=== PATIENT | male | born 1980 | race Two or more races ===

== ENCOUNTER 2017-06-15 16:26 | Emergency (ER) | payer OTHER ==
[2017-06-15 16:50] VITALS: BP 136/81; PULSE 73; TEMP 98.2; BMI 31.2
--- NOTE | 2017-06-15 17:06 | PDOC ---
History of Present Illness - General Chief Complaint: Laceration Stated Complaint: CUT IN ARM Time Seen by Provider: 06/15/17 17:05 History Source: Patient Exam Limitations: No Limitations - History of Present Illness Initial Comments: CHIEF COMPLAINT: 37 y/o afebrile male with no significant PMH here for laceration to left arm. HISTORY OF PRESENT ILLNESS: The patient states he was at work using a saw to cut metal when one of the pieces of the saw broke and hit him in the left arm, causing a laceration. He states he is not UTD on tetanus. He denies numbness/ tingling in affected extremity. The patient is right handed. Vital signs on arrival are within normal limits. REVIEW OF SYSTEMS: GENERAL/CONSTITUTIONAL: No fever/chills. No weakness. No weight change. MUSCULOSKELETAL: No joint or muscle swelling or pain. No neck or back pain. SKIN: +laceration to left arm NEUROLOGIC: No headache, vertigo, loss of consciousness, or loss of sensation. PHYSICAL EXAM: VITAL_SIGNS: within normal limits GENERAL_APPEARANCE: alert, cooperative, no obvious discomfort. MENTAL_STATUS: speech clear, oriented X 3, responds appropriately to questions. NEURO: motor intact and sensory intact in injured extremity. EXTREMITIES: 3cm irregular laceration to left distal, medial arm with well approximated margins and minimal active bleeding. Full flexion and extension of fingers, wrist and elbow of left hand. SKIN: warm, dry, good color. Past History - Past Medical History Allergies/Adverse Reactions: Allergies Allergy/AdvReac Type Severity Reaction Status Date / Time No Known Allergies Allergy Verified 06/15/17 16:45 Home Medications: Ambulatory Orders NK [No Known Home Medication] 06/15/17 Other medical history: DENIES. - Psycho/Social/Smoking Cessation Hx Anxiety: No Suicidal Ideation: No Smoking Status: No Smoking History: Never smoked Number of Cigarettes Smoked Daily: 0 *Physical Exam - Vital Signs Last Vital Signs Temp Pulse Resp BP Pulse Ox 98.2 F 73 19 136/81 99 06/15/17 16:45 06/15/17 16:45 06/15/17 16:45 06/15/17 16:45 06/15/17 16:45 Medical Decision Making - Medical Decision Making A/P: 37 y/o afebrile male with laceration to left arm. Plan is as follows: 1. Tetanus 2. Copious irrigation 3. Lac repair The laceration was repaired by Resident Shea AUGUSTIN, supervised by MD Masterson. The patient tolerated suturing well. He was informed tetanus status is now UTD for 10 years. He was instructed to return to the ER in 7-10 days for suture removal and to keep the area clean and dry. Pt was instructed to return to the ER with any worsening or concerning symptoms. The patient verbalizes understanding of all instructions, has no further questions and is awaiting discharge. *DC/Admit/Observation/Transfer Diagnosis at time of Disposition: Laceration of arm Qualifiers: Encounter type: initial encounter Laterality: left Qualified Code(s): S41.112A - Laceration without foreign body of left upper arm, initial encounter - Discharge Dispostion Condition at time of disposition: Improved - Referrals Referrals: Sonal Ospina A [Primary Care Provider] - - Patient Instructions Printed Discharge Instructions: DI for Laceration Repair Additional Instructions: Discharge Instructions: -Keep wound clean, dry and covered -Return to the ER in 7-10 days for suture removal -Return to the ER sooner with any concerning symptoms Instrucciones de mike: - Mantenga la herida limpia, seca y cubierta -Regresar a la ER en 7-10 fernandez para la eliminacin de sutura -Vuelva a la urgencia antes con cualquier sntoma relacionado
[2017-06-15] MEDS ORDERED: DIPHTH,PERTUSS(ACELL),TET 0.5 ML DISP.SYRIN IM ONE (17:28)
[2017-06-15] MEDS ORDERED: LIDOCAINE 1%/EPI 1:100000 (20 ML MULTI DOSE VIAL) IJ ONE (17:38)
[2017-06-15] MEDS ORDERED: LIDOCAINE 1%/EPI 1:100000 (50 ML MULTI DOSE VIAL) ONE (17:39)
== END 2017-06-15 19:01 | disposition home or self-care (01) ==
LOC: JERFT 16:26
PROC: 0HQCXZZ Repair Left Upper Arm Skin, External Approach (ICD-10-PCS; principal; 2017-06-15)
PROC: 3E0234Z Introduction of Serum, Toxoid and Vaccine into Muscle, Percutaneous Approach (ICD-10-PCS; 2017-06-15)
DX: S41.112A Laceration without foreign body of left upper arm, initial encounter (principal); W31.89XA Contact with other specified machinery, initial encounter; Y93.89 Activity, other specified; Y92.9 Unspecified place or not applicable
CPT/HCPCS: 90715; 99281-25

== ENCOUNTER 2018-01-08 21:13 | Emergency (ER) | payer OTHER ==
--- NOTE | 2018-01-08 21:22 | PDOC ---
Rapid Medical Evaluation Time Seen by Provider: 01/08/18 21:15 Medical Evaluation: Allergies Allergy/AdvReac Type Severity Reaction Status Date / Time No Known Allergies Allergy Verified 06/15/17 16:45 01/08/18 21:15 The patient presents with a chief complaint of: [Pain to the bilateral legs for three days. Denies back pain. Denies trauma or injury. No difficulty with urination or defecation. Pain is 6/10. Took Motrin with good result. Pain returns worse. Denies injury or strenuous exercise. ] I have performed a brief in-person evaluation of this patient. Pertinent physical exam findings: vss, [No spinal point tenderness. ] I have ordered the following: Urinalysis[] The patient will proceed to the ED for further evaluation. Discharge Disposition - Diagnosis Bilateral leg pain - Referrals - Patient Instructions - Post Discharge Activity
[2018-01-08 21:27] VITALS: BP 139/77; PULSE 88; TEMP 97.9; BMI 30.7
[2018-01-08 22:09] LABS: URINE APPEARANCE CLEAR; URINE BILIRUBIN NEGATIVE (NEGATIVE); URINE BLOOD NEGATIVE (NEGATIVE); URINE COLOR LTYELLOW; URINE GLUCOSE (UA) NEGATIVE (NEGATIVE); URINE KETONE NEGATIVE (NEGATIVE); URINE LEUK ESTERASE NEGATIVE (NEGATIVE); URINE NITRITE NEGATIVE (NEGATIVE); URINE PROTEIN NEGATIVE (NEGATIVE); URINE UROBILINOGEN NEGATIVE mg/dL (0.2-1.0)
--- NOTE | 2018-01-08 22:37 | PDOC ---
History of Present Illness - General Chief Complaint: Pain Stated Complaint: LEG PAIN Time Seen by Provider: 01/08/18 21:15 Past History - Past Medical History Allergies/Adverse Reactions: Allergies Allergy/AdvReac Type Severity Reaction Status Date / Time No Known Allergies Allergy Verified 01/08/18 21:21 Home Medications: Ambulatory Orders Cyclobenzaprine HCl [Flexeril -] 10 mg PO HS #10 tablet 01/08/18 Ibuprofen 800 mg PO TID #30 tablet 01/08/18 COPD: No Other medical history: Pt denies - Suicide/Smoking/Psychosocial Hx Smoking Status: No Smoking History: Never smoked Have you smoked in the past 12 months: No Number of Cigarettes Smoked Daily: 0 Information on smoking cessation initiated: No Hx Alcohol Use: No Drug/Substance Use Hx: No Substance Use Type: None *Physical Exam - Vital Signs Last Vital Signs Temp Pulse Resp BP Pulse Ox 97.9 F 88 18 139/77 98 01/08/18 21:23 01/08/18 21:23 01/08/18 21:23 01/08/18 21:23 01/08/18 21:23 ED Treatment Course - ADDITIONAL ORDERS Additional order review: Laboratory Results 01/08/18 21:46 Urine Color Ltyellow Urine Appearance Clear Urine pH 6.0 Ur Specific [place] 1.024 Urine Protein Negative Urine Glucose (UA) Negative Urine Ketones Negative Urine Blood Negative Urine Nitrite Negative Urine Bilirubin Negative Urine Urobilinogen Negative Ur Leukocyte Esterase Negative *DC/Admit/Observation/Transfer Diagnosis at time of Disposition: Bilateral leg pain Muscle strain, lower leg Qualifiers: Encounter type: initial encounter Laterality: left Qualified Code(s): S86.912A - Strain of unspecified muscle(s) and tendon(s) at lower leg level, left leg, initial encounter Muscle strain of right lower extremity Qualifiers: Encounter type: initial encounter Qualified Code(s): S86.911A - Strain of unspecified muscle(s) and tendon(s) at lower leg level, right leg, initial encounter - Discharge Dispostion Disposition: HOME Condition at time of disposition: Stable Admit: No - Referrals Referrals: Sonal Ospina [Primary Care Provider] - - Patient Instructions Printed Discharge Instructions: DI for Muscle Strain Additional Instructions: You have muscle strains in your legs. This may take up to a week to go away. Please take Motrin 800 mg every 8 hours as needed for pain. You may take Flexeril at night this is a muscle relaxer. Do not drive after taking this medicine as it may make you sleepy. Please use a heating pack to the legs to help relieve the pain. Please follow-up with your primary care doctor this week. Return to the emergency department if you have worsening pain, numbness and tingling to the legs, weakness, or have any changes in your symptoms. Tienes tensiones musculares en tus piernas. [place] puede demorar hasta harpreet semana en desaparecer. [place] Motrin 800 mg cada 8 horas segn sea necesario para el dolor. Puede kamar Flexeril por la noche, kierra es un relajante muscular. No conduzca despus de kamar kierra medicamento, ya que puede causarle sueo. Utilice un paquete de calefaccin para las piernas para ayudar a aliviar el dolor. Por favor elisa un seguimiento con anderson mdico de atencin primaria esta semana. Regrese al servicio de urgencias si tiene un empeoramiento del dolor, entumecimiento y hormigueo en las piernas, debilidad o cambios en los sntomas. Print Language: URUGUAYAN - Post Discharge Activity Forms/Work/School Notes: Back to Work
[2018-01-08] MEDS ORDERED: KETOROLAC TROMETHAMINE 60 MG/2 ML VIAL IM ONE (22:41)
[2018-01-08] MEDS ORDERED: KETOROLAC TROMETHAMINE 60 MG/2 ML VIAL ONE (22:41)
== END 2018-01-08 23:01 | disposition home or self-care (01) ==
LOC: JERFT 21:13
PROC: 3E0233Z Introduction of Anti-inflammatory into Muscle, Percutaneous Approach (ICD-10-PCS; principal; 2018-01-08)
DX: S86.912A Strain of unspecified muscle(s) and tendon(s) at lower leg level, left leg, initial encounter (principal); S86.911A Strain of unspecified muscle(s) and tendon(s) at lower leg level, right leg, initial encounter; X58.XXXA Exposure to other specified factors, initial encounter; Y93.9 Activity, unspecified; Y92.9 Unspecified place or not applicable
CPT/HCPCS: 81003; 99281-25